=== PATIENT | female | born 1955 | race Caucasian/White ===

== ENCOUNTER 2018-10-04 19:28 | Inpatient (IN) | payer BC, OTHER ==
[~2018-10-04] VITALS: Ht 165.1 cm; Wt 104.8 kg
--- NOTE | ~2018-10-04 | OP ---
[facility] [address] [place] [address] OPERATIVE REPORT Name: BOZENA SHAH Room: [address] IN M.R.#: [id number] Admission: 10/04/18 Attend Phys: Yajaira Christian Discharge: Date of : 55 Report #: [id number] THIS REPORT FOR: //name// CC: Jaylin Nunez DICTATED BY: Tito Ruelas DO DATE OF SERVICE: 10/09/2018 PREOPERATIVE DIAGNOSIS: A split, depressed, comminuted intraarticular right tibial plateau fracture. POSTOPERATIVE DIAGNOSIS: A split, depressed, comminuted intraarticular right tibial plateau fracture. OPERATION PERFORMED: Open reduction and internal fixation with bone grafting of right tibial plateau. SURGEON: Max Espinoza DO INFECTION CONTROL PREVENTIONIST: Tito Ruelas DO SECOND MANAGER MEDICAL DEVICE: Mitchell Espinoza DO ANESTHESIA: General. FINDINGS: Comminuted intra-articular lateral plateau fracture. SPECIMENS: None. ESTIMATED BLOOD LOSS: 50 mL. COMPLICATIONS: None. CONDITION: The patient is stable. DRAINS: None. ANTIBIOTICS: 2 grams Ancef given IV preoperatively. DISPOSITION: Stable to PACU to orthopedic floor. INDICATIONS FOR PROCEDURE: The patient is a 63-year-old female who presented to [facility] on 10/04/2018 after slipping on the ice in her driveway and sustained a fall onto her right knee. She was found to have tibial [facility] [address] [place] [address] OPERATIVE REPORT Name: BOZENA SHAH Room: [address] IN M.R.#: [id number] Admission: 10/04/18 Attend Phys: Yajaira Christian Discharge: Date of : 55 Report #: [id number] plateau fracture on the right leg. Risks, indications, and treatment alternatives were discussed with the patient and we do recommend operative fixation due to the intercondylar widening, as well as comminution of the lateral joint surface with joint depression. Discussed with the patient that she does have significant underlying arthritic changes already of the knee and that despite anatomic fixation and sikh of the joint line due to her underlying arthritic process, she may eventually require a total knee arthroplasty. The patient showed good understanding and elected to proceed with operative fixation. The risks were discussed with her in detail, which included but were not limited to neurovascular damage, infection, fracture, need for repeat surgery, failure of the implants, allergies developed in the implants, deep vein thrombosis, pulmonary emboli, myocardial infarction, rhabdomyolysis, malunion, nonunion, decreased range of motion. The patient showed good understanding. OPERATION IN DETAIL: The patient was taken to the operating room and placed on the operating table in the supine position. A well-padded tourniquet was placed on the right proximal thigh. Tourniquet was inflated to 300 mmHg throughout the procedure for total of 80 minutes. General anesthesia was induced. Right lower extremity was then sterilely prepped and draped in the usual fashion. A timeout was performed and everyone in room was in agreement that this was a correct patient, procedure to be performed, operative side, and she has been given preoperative antibiotics. An anterolateral based incision was marked out on the right leg. Esmarch was used to exsanguinate the extremity and tourniquet was inflated. The scalpel was used to sharply dissect through the skin and subcutaneous tissue down to the level of the fascia of the anterior compartment of the leg. Fascia was then sharply incised and dissected free from the anterior compartment and off Gerdy's tubercle. Dissection was carried proximally to the level of the joint. A Han elevator was then used to free the proximal tibia from the anterior compartment musculature. A submeniscal arthrotomy was then used and a Harwood elevator was used to palpate significant joint line depression of the lateral compartment. A cortical window was then created by first predrilling circumferentially in a 1 cm circular pattern in the lateral metaphyseal region. An osteotome was then used to complete the cortical window. A bone tamp was then used to elevate the lateral joint surface. This was confirmed to be improved on fluoroscopy, as well as through our submeniscal arthrotomy by using a Harwood elevator to palpate the improvement in the joint line. The metaphyseal defect was then filled with allograft bone chips. This was tamped into position and was found to give good support to the lateral joint surface. Next, the appropriately sized Synthes 3.5 mm variable angle locking proximal tibial plate was selected. This was a 4-hole, 87 mm right-sided plate. Fluoroscopy was used to confirm appropriate positioning on the lateral cortex. A nonlocking screw was first placed distally to buttress the lateral fragments. Next, a nonlocking screw was then placed proximally to act as a lag screw to improve the intercondylar widening. Next, remaining proximal row was filled with 3.5 mm variable angle screws. These were all 70 mm in length. Next, a [address] [address] OPERATIVE REPORT Name: BOZENA SHAH Room: [address] IN .R.#: [id number] Admission: 10/04/18 Attend Phys: Yajiara Christian Discharge: Date of : 55 Report #: [id number] kickstand style screw was placed in the metaphyseal region followed by the final distal cortex screw. Once all screws were appropriately positioned, final images were taken and confirmed improved alignment of the fracture and appropriate positioning of the plate and screws. Next, the wound was thoroughly irrigated and analgesic solution was injected intraarticularly, as well as into the surrounding soft tissues. The submeniscal arthrotomy was then closed, as well as the fascial layer with #1 Vicryl in a mdypym-jy-warld fashion. Next, the subcutaneous layer was closed with simple inverted 2-0 Monocryl suture. The skin was then closed with a running Stratafix suture and Dermabond was used to approximate skin. A Mepilex dressing was then applied followed by an Kuldip bandage. The patient was then placed back in 3D hinged knee brace. The patient was awakened from general anesthetic and found to tolerate the procedure well. No complications. The patient was transferred to the PACU in stable condition. By: [id number] Espinoza DO /sanket
[2018-10-04 19:34] VITALS: BP 153/66
[2018-10-04] MEDS ORDERED: ASPIR 8181 M1 PO (21:28)
[2018-10-04] MEDS ORDERED: BUTRANS1 EAC1 TRANSDERM (21:29)
[2018-10-04] MEDS ORDERED: CARTIA XT240 M1 PO (21:30)
[2018-10-04] MEDS ORDERED: COREG6.25 MG PO (21:30)
[2018-10-04] MEDS ORDERED: CYMBALTA60 MG PO (21:31)
[2018-10-04] MEDS ORDERED: FISH OIL 1,001000 M2 PO (21:31)
[2018-10-04] MEDS ORDERED: NEURONTIN 300300 M1 PO ×2 (21:32)
[2018-10-04] MEDS ORDERED: GLUCAGON HCL1 MG INJECTION (21:33)
[2018-10-04] MEDS ORDERED: HYDROCHLOROTHIA25 M2 PO (21:34)
[2018-10-04] MEDS ORDERED: BASAGLAR K100 UNIT/1 SUBQ (21:35)
[2018-10-04] MEDS ORDERED: LISINOPRIL2.5 MG PO (21:36)
[2018-10-04] MEDS ORDERED: LIPITOR 20 MG T20 M1 PO (21:36)
[2018-10-04] MEDS ORDERED: LIORESAL 10 MG10 MG PO (21:37)
[2018-10-04] MEDS ORDERED: METFORMIN HCL500 MG PO (21:37)
[2018-10-04] MEDS ORDERED: NOVOLOG100 UNIT/1 SUBQ (21:38)
[2018-10-04] MEDS ORDERED: OMEPRAZOLE40 MG PO (21:38)
[2018-10-04] MEDS ORDERED: IRON18 M1 PO (21:40)
[2018-10-04] MEDS ORDERED: REQUIP0.5 MG PO (21:41)
[2018-10-04] MEDS ORDERED: PERCOCET 7.5-31 EACH PO (21:41)
[2018-10-04] MEDS ORDERED: POTASSIUM20 PO (21:41)
[2018-10-04] MEDS ORDERED: SENOKOT8.6 MG PO (21:42)
[2018-10-04] MEDS ORDERED: TRAZODONE 150150 M1 PO (21:43)
[2018-10-04] MEDS ORDERED: TIMOLOL MA0.25 %/52 INTRAOCULR (21:43)
[2018-10-04] MEDS ORDERED: TRICOR145 MG PO (21:44)
[2018-10-04] MEDS ORDERED: VITAMIN D1000 UNI1 PO (21:44)
[2018-10-04] MEDS ORDERED: TRAVATAN (21:45)
[2018-10-04 22:19] LABS: ABSOLUTE EOSINOPHILS 0.1 thou/uL (0.0-0.7); ABSOLUTE LYMPHOCYTES 1.3 thou/uL (0.8-5.3); ABSOLUTE MONOCYTES 0.3 thou/uL (0.0-1.2); ABSOLUTE NEUTROPHILS 2.3 thou/uL (1.6-8.1); EOSINOPHILS 3.4 %; HEMATOCRIT 36.2 % (37.0-47.0); HEMOGLOBIN 12.2 gm/dL (12.0-15.0); LYMPHOCYTES 30.9 %; MCH 30.2 pg (26.0-34.0); MCHC 33.7 g/dL (28.0-37.0); MCV 89.6 fL (80.0-100.0); MONOCYTES 8.2 %; MPV 7.7 fl. (7.2-11.1); NUCLEATED RBCS 0 /100WBC; PLATELET COUNT* 186 thou/uL (150-400); POLYS 56.5 %; RBC 4.05 mil/uL (4.20-5.00); RDW-CV 13.8 % (10.5-14.5); WBC 4.1 thou/uL (4.0-11.0)
[2018-10-04 22:26] LABS: CALCIUM 9.5 mg/dL (8.5-10.1); POTASSIUM 3.9 mmol/L (3.5-5.1)
[2018-10-04 23:27] VITALS: BP 130/59
[2018-10-04 23:36] VITALS: BP 145/60
[2018-10-05] MEDS ORDERED: NEURONTIN600 MG PO ×2 (00:44→00:46)
--- NOTE | 2018-10-05 06:20 | NUR ---
Admission last evening at 2330. She has a rt.plateau tibial fracture. Splint with acewrap placed on patient in ED. She is nonweight bearing to RLE. She rates her pain from 8-10. She does pivot well to bedside commode and has had good urine output. She's had pain meds x 2. Ortho consult called to Dr Felton and he ordered her to have nothing by mouth. She's been NPO since 0030. She did take requip for restless legs with a sip of H2O and baclofen also with a sip of H2O. She has been having muscle spasms in her left leg. RLE is elevated on a pillow. She is in pain but has rested a bit this shift.
[2018-10-05 09:32] VITALS: BP 127/64
[2018-10-05 10:55] LABS: URINE BILIRUBIN NEGATIVE (Negative); URINE BLOOD NEGATIVE (Negative); URINE CLARITY CLEAR; URINE COLOR YELLOW; URINE GLUCOSE-RANDOM 2+ (Negative); URINE KETONES NEGATIVE (Negative); URINE LEUKOCYTES-REFLEX NEGATIVE (Negative); URINE NITRITE-REFLEX NEGATIVE (Negative); URINE PROTEIN NEGATIVE (Negative)
--- NOTE | 2018-10-05 12:20 | NUR ---
PT.SITTING ON SIDE OF BED,EATING LUNCH. SHE WAS ALERT AND ORIENTED. SHE LIVES WITH HER IN A RAISED RANCH HOME. HAS A FULL FLIGHT OF STAIRS FROM GARAGE TO MAIN LEVEL. NORMALLY IS INDEPENDENT AT HOME. NO USE OF DME OR HX OF HH. SHE HAS A WALKER AT HOME 'SOMEWHERE'. SHE DOES NOT THINK IT HAS FRONT WHEELS. CM WILL SEE AGAIN AFTER SURGERY AND P.T.INITIATED TO DETERMINE DISCHARGE PLANS.
[2018-10-05 12:50] VITALS: BP 152/78
--- NOTE | 2018-10-05 15:02 | EKG ---
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: : 1955 Requested By: Yasir Campoverde Order Number: [id number] Reading MD: Jono Malave Measurements Intervals [place] Rate: 84 P: 43 IA: 132 QRS: -16 QRSD: 94 T: 28 QT: 380 QTc: 450 Interpretive Statements Sinus rhythm Abnormal R-wave progression, late transition Inferior infarct, old Baseline wander in lead(s) V1 No previous ECG available for comparison Electronically Signed On 10-05-2018 15:02:45 [employer]DR[employer] ATTENDANT by Jono Malave [email or web address] <ELECTRONICALLY SIGNED> By: Jono Malave MD, [facility] 10/05/18 1502 1246 1246 Jono Malave MD, [facility] /EPI
[2018-10-05 16:00] VITALS: BP 118/48
--- NOTE | 2018-10-05 17:22 | NUR ---
pt remained alert and oriented this shift. pt c/o pain, meds given as ordered. pt is carb control currently and will be npo after midnight. ortho will see patient and will go over plan of care after ct and x-ray results. pt id nwb to rt leg and has splint currently to leg. fall risk precautions in place. hourly rounding completed. will continue to monitor.
[2018-10-05 20:05] VITALS: BP 148/67
--- NOTE | 2018-10-06 04:50 | NUR ---
PT REMAINED A&Ox4. VITALS STABLE. PAIN CONTROLLED WITH OXY AND MORPHINE. NPO AFTER MIDNIGHT. GOT UP TO CAMMODE WITH ASSIST OF 1, GAITBELT AND WALKER USED. IV IN L AC PATENT, SL. GAVE 40 UNITS OF LANTUS AT BEDTIME PER DR ORDERS SINCE NPO. SIMRAN WRAP AND IMMOBILIZER IN PLACE. L SCD ON. HOURLY ROUNDING COMPLETE. FALL PRECAUTIONS IN PLACE. CALL LIGHT WITHIN REACH. WILL CONTINUE TO MONITOR.
--- NOTE | 2018-10-06 05:47 | NUR ---
Alert and oriented x 4. She's up to the bedside commode with assist x 1 and walker,she remains NWB to RLE. Odjose eduardo recieved per Dr Campoverde regarding insulin dose, 1/2 lantus dose was given. She has been NPO since midnight. I agree with Jason CORONADOdirector medical science and charting.
[2018-10-06] MEDS ORDERED: OXYCODONE HCL 55 MG PO (08:58)
[2018-10-06] MEDS ORDERED: ASA5UEC PO (08:58)
[2018-10-06 15:56] VITALS: BP 116/56
--- NOTE | 2018-10-06 17:08 | NUR ---
ALERT AND ORIENTED X4. UP WITH ASSIST X1 WITH WALKER AND GAIT BELT. IV IS PATENT AND SALINE LOCKED. PAIN BEING MANAGED WITH PO PAIN MEDICATION. DENIES NAUSEA. ATTENDED THERAPY THIS AM, PHYSICAL THERAPIST REQUESTS THAT PATIENT BE SEEN AGAIN BEFORE DISCHARGING DUE TO ISSUES WITH STAIRS. 3D HINDGE BRACE PLACED THIS AM. VSS ON ROOM AIR. HOURLY ROUNDS HAVE BEEN MAINTAINED THROUGHOUT SHIFT. CALL LIGHT IS WITHIN REACH. NURSING WILL CONTINUE TO MONITOR.
--- NOTE | 2018-10-06 17:41 | NUR ---
ARIANNA RECOMMENDING SNF AT DISCHARGE. PT.HAS STAIRS TO ENTER HOUSE. HAS NOT BEEN ABLE TO NEGOTIATE STAIRS IN THERAPY. DISCUSSED WITH PT. SHE WANTED TO KNOW HOW MUCH IT COST. TOLD HER WHEN SNF WAS GETTING AUTH,THEY WOULD CHECK HER BENEFITS. GAVE HER LIST OF SNFS THAT CONTRACT WITH HER INSURACE. SHE SAID SHE WOULD DISCUSS WITH HER AND MAYBE SHE WOULD DO BETTER ON STAIRS TOMORROW. SHE SAID TALKED LIKE SHE MAY HAVE SURGERY IN A COUPLE OF WEEKS AFTER SWELLING GOES DOWN.
[2018-10-06 19:15] VITALS: BP 132/63
--- NOTE | 2018-10-06 22:14 | NUR ---
RECIEVED REPORT AND ASSUMED CARE OF PT AT 1915. PT RESTING IN BED WITH CALL LIGHT IN REACH, PT USING APPROPRIATELY. PT DENIED PAIN OR DISCOMFORT AT THAT TIME. HS MEDS GIVEN PER EMAR AT 2099. PT DENIED PAIN AT THAT TIME. CALL LIGHT IN REACH, VITAL SIGNS WITHIN NORMAL LIMITS
[2018-10-07 00:20] VITALS: BP 136/65
[2018-10-07 06:00] VITALS: BP 148/77
--- NOTE | 2018-10-07 06:48 | NUR ---
PT PROGRESSING TOWARD GOALS. PT UP WITH MINIAL ASSISTANCE. PT ABLE TO TRANSFER, STAND AND USE WALKER WITH STANDBY ASSIST. PT'S PAIN CONTROLLED WITH ORAL MEDS. VITAL SIGNS WITHIN NORMAL LIMITS. NO ACUTE CHANGES, WILL CONTINUE TO MONITOR.
--- NOTE | 2018-10-07 12:46 | NUR ---
Following for d/c planning needs. Reviewed chart and spoke with nurse, pt, PT and spouse. Pt is unable to scoot up the stairs on her backside in therapy and is not able to hop up the stairs. According to spouse, there are 3-5 steps into the house. Unable to obtain insurance authorization for skilled on a Tuesday. Pt would prefer going home on d/c from hospital. Will remain available to assist as needed.
[2018-10-07 15:39] VITALS: BP 109/54
[2018-10-07 20:00] VITALS: BP 115/54
[2018-10-08 04:15] LABS: HEMATOCRIT 35.5 % (37.0-47.0); HEMOGLOBIN 12.1 gm/dL (12.0-15.0); MCH 30.5 pg (26.0-34.0); MCV 89.7 fL (80.0-100.0); MPV 8.5 fl. (7.2-11.1); RBC 3.96 mil/uL (4.20-5.00); RDW-CV 13.6 % (10.5-14.5); WBC 4.8 thou/uL (4.0-11.0)
[2018-10-08 04:54] LABS: CALCIUM 9.5 mg/dL (8.5-10.1); CREATININE 1.2 mg/dL (0.6-1.3); MAGNESIUM 2.1 mg/dL (1.8-2.4); POTASSIUM 4.7 mmol/L (3.5-5.1)
--- NOTE | 2018-10-08 05:13 | NUR ---
ASSUMED CARE OF PT AT 1900 PT ALERT AND ORIENTED X 4 VS AND ASSESSMENT STABLE. PT HAD PAIN MEDS ONCE FOR RLE PAIN THEN SLEPT THROUGH THE NIGHT. WILL CONTINUE PLAN OF CARE.
[2018-10-08 08:00] VITALS: BP 142/67
[2018-10-08 16:13] VITALS: BP 124/55
--- NOTE | 2018-10-08 17:51 | NUR ---
PT RESTING IN BED THROUGHOUT SHIFT. IMMOBLIZER TO RIGHT LEG REMAINS IN PLACE. PT CALLS APPROPRIATELY FOR ASSIST. PAIN WELL CONTROLLED WITH PO MEDS. PARTICIPATED WELL IN THERAPY. PLAN TO DC HOME TOMORROW
[2018-10-08 19:40] VITALS: BP 97/48
--- NOTE | 2018-10-09 05:51 | NUR ---
VITALS WNL. SEE MAR. SEE CHARTING. FALL PRECAUTIONS IN PLACE. HOURLY ROUNDING FOR SAFETY.
[2018-10-09 13:35] VITALS: BP 126/62
[2018-10-09 20:00] VITALS: BP 168/74
[2018-10-10] VITALS: BP 153/69
[2018-10-10 04:00] VITALS: BP 149/71
--- NOTE | 2018-10-10 04:50 | NUR ---
PATIENT RESTED IN BED, NO ACUTE CHANGES. PATIENT IS NOT SHOWING SIGNS OF DISTRESS. FALL PRECAUTIONS IN PLACE, CALL LIGHT WITH IN REACH, HOURLY ROUNDING OBSERVED, BED ALARM ON.
--- NOTE | 2018-10-10 12:13 | OP ---
[facility] [address] [place] [address] OPERATIVE REPORT Name: BOZENA SHAH WINSTON Room: [address] IN M.R.#: [id number] Admission: 10/04/18 Attend Phys: Yajaira Christian Discharge: Date of : 55 Report #: [id number] THIS REPORT FOR: //name// CC: Jaylin Nunez DICTATED BY: Tito Ruelas DO DATE OF SERVICE: 10/09/2018 ADDENDUM PROCEDURE PERFORMED: Open reduction and internal fixation of right lateral tibial plateau fracture with bone grafting. IMPLANTS: Synthes 3.5 mm locking proximal tibial plate, 4-hole 3.5 mm conical screw 75 mm, 3.5 mm variable angle screws, 70 mm x 3; 3.5 mm cortex screw 38 mm, 3.5 mm variable angle screw 58 mm, 3.5 mm cortex screw 34 mm and cancellous bone chips 55 mL. <ELECTRONICALLY SIGNED> By: Mike Toribio DO 10/10/18 1213 1742 Flory Espinoza DO /sanket
[2018-10-10 16:47] VITALS: BP 126/65
--- NOTE | 2018-10-10 16:52 | NUR ---
ARIANNA RECOMMENDING SNF FOR PT. DISCUSSED WITH PT. SHE SAID EVEN IF THEY DROVE CAR TO FRONT DOOR. SHE WOULD HAVE 5 STEPS. SHE COULD STAY IN BASEMENT THAT IS FINISHED BUT COUCH IS TOO LOW AND BED THAT IS DOWN THERE IS TOO HIGH. DISCUSSED RENTING A HOSPITAL BED. SHE SAID SHE DIDN'T WANT TO BE DOWN THERE BY HERSELF. PER LISA Godfrey,SOLDERING MACHINE OPERATOR AUTOMATIC AT [facility], PT.DOES NOT HAVE ANY REAL SKILLED BENEFITS. SHE CAN FLEX HER BENEFITS AND CM CAN MAKE A SKILLED BENEFIT FOR HER. PT.ASKING HOW MUCH IT WOULD COST, ETC. LISA HAD ME LEAVE A MESSAGE FOR MATTIE CRANDALL/[facility] CM THAT WORKS WITH PT.'S PARTICULAR PLAN. [phone]) HAVE NOT HEARD BACK FROM HER AT THIS TIME. TOLD PT.I WOULD HAVE INFO FOR HER IN AM.
--- NOTE | 2018-10-10 18:09 | NUR ---
ALERT AND ORIENTED X4. UP WITH ASSIST X1 WITH WALKER AND GAIT BELT. IV IS PATENT AND SALINE LOCKED. PAIN BEING MANAGED WITH PO PAIN MEDICATION. DENIES NAUSEA. TOLERATING DIET. 3D HINDGE BRACE IN PLACE. SIMRAN WRAP IS C/D/I. NWB STATUS IN PLACE. VSS ON ROOM AIR. HOURLY ROUNDS HAVE BEEN MAINTAINED THROUGHOUT SHIFT. CALL LIGHT IS WITHIN REACH. NURSING WILL CONTINUE TO MONITOR.
[2018-10-10 22:27] VITALS: BP 120/54
[2018-10-11 00:18] VITALS: BP 141/55
[2018-10-11 04:27] VITALS: BP 142/67
[2018-10-11 04:43] LABS: HEMATOCRIT 37.1 % (37.0-47.0); HEMOGLOBIN 12.6 gm/dL (12.0-15.0); MCH 30.1 pg (26.0-34.0); MCHC 33.9 g/dL (28.0-37.0); MCV 88.9 fL (80.0-100.0); MPV 7.9 fl. (7.2-11.1); RBC 4.17 mil/uL (4.20-5.00); RDW-CV 13.4 % (10.5-14.5); WBC 6.3 thou/uL (4.0-11.0)
--- NOTE | 2018-10-11 04:54 | NUR ---
ASSUMED CARE OF PT AT 1900PT ALERT AND ORIENTED X4 VS AND ASSESSMET STABLE.PT HAD PAIN MEDS BEFORE BED THEN SLEPT THROUGH THE NIGHT. OFFERED PT ANOTHER DOSE AT 0400 PT DECLINED AND STATED SHE WOULD LET ME KNOW IF SHE NEEDED PAIN MEDS. PT CONTINUES WITH 3D HINGE BRACE POSITIVE CMS CHECKS TO RLE. WILL CONTINUE PLAN OF CARE.
[2018-10-11 04:55] LABS: CALCIUM 9.4 mg/dL (8.5-10.1); POTASSIUM 4.1 mmol/L (3.5-5.1)
[2018-10-11 08:17] VITALS: BP 135/77
--- NOTE | 2018-10-11 13:36 | NUR ---
Nutrition: reassessment. Pt is tolerating diet. Pain is improved. No nutrition interventions needed at this time. Low risk.
--- NOTE | 2018-10-11 17:26 | NUR ---
PT UP IN CHAIR AND BR WITH ASSIST AND WALKER. PARTICIPATES IN ALL THERAPIES. PAIN WELL CONTROLLED WITH PO MEDS. TOLERATING PO WELL. BG WELL CONTROLLED. PLAN TO DC IN AM
--- NOTE | 2018-10-11 17:41 | NUR ---
THERAPY FEELS PT.COULD DISCHARGE HOME WITH HOME HEALTH P.T. SHE WAS ABLE TO DO 4 STAIRS TODAY. WILL DISCUSS IN AM WITH PT.
[2018-10-11 20:00] VITALS: BP 111/61
[2018-10-11 23:52] VITALS: BP 113/56
[2018-10-12 04:30] VITALS: BP 127/60
--- NOTE | 2018-10-12 05:03 | NUR ---
ASSUMED CARE OF PT AT 1900 PT ALERT AND ORIENTED X4 VS AND ASSESSMENT STABLE. POSITIVE CMS CHECKS TO RLE. PT HAD PAIN MEDS ONCE THEN SLEPT THROUGH THE NIGHT. WILL CONTINUE PLAN OF CARE.
[2018-10-12 08:59] VITALS: BP 120/97
--- NOTE | 2018-10-12 16:25 | NUR ---
POWDER COAT PAINTER FAXED PATIENT'S FEP CONSENT FORM TO LISA. LISA RETURNED CALL AND INFORMS THAT THE PATIENTS BENEFITS CHANGE HAS BEEN APPROVED AND NOW HAS AN AUTH NUMBER AND CAN GO TO [facility] WHEN ARRANGED. POWDER COAT PAINTER SPOKE TO THE PATIENT TO DISCUSS DISCHARGE PLANNING FOR THE PATIENT. PATIENT CHOSE [facility]. D/C CLAIMS ATTORNEY SPOKE TO JUAN DIEGO WITH [facility] TO INFORM OF THE SNF REFERRAL AND FAXED THE PATIENT'S FACESHEET, CLINICAL INFO, AND PT/OT NOTES. GRZEGORZ WITH [facility] DID AN ON-SITE VISIT WITH THE PATIENT AND HAS ACCEPTED THE PATIENT FOR [facility]. V REQUEST THAT A LETTER OF PREDICTABILITY BE SIGNED BY THE PHYSICIAN PRIOR TO D/C. FORM ON FRONT OF PATIENT'S CHART. CM WILL REMAIN AVAILABLE TO ASSIST AND FOLLOW NEEDED.
--- NOTE | 2018-10-12 17:57 | NUR ---
ALERT AND ORIENTED X4. UP WITH ASSIST X1 WITH WALKER AND GAIT BELT. IV IS PATENT AND SALINE LOCKED. PAIN BEING MANAGED WITH PO PAIN MEDICATION. DENIES NAUSEA. ATTENDED PHYSICAL AND OCCUPATIONAL THERAPY THIS SHIFT. TOLERATING DIET. NWB STATUS MAINTAINED THROUGHOUT SHIFT. 3D HINDGE BRACE IN PLACE. VSS ON ROOM AIR. HOURLY ROUNDS HAVE BEEN MAINTAINED THROUGHOUT SHIFT. PLAN TO DC SKILLED WHEN ARRANGED. CALL LIGHT IS WITHIN REACH. NURSING WILL CONTINUE TO MONITOR.
[2018-10-12 20:45] VITALS: BP 130/69
--- NOTE | 2018-10-13 07:21 | NUR ---
Alert and oriented x 4. Up with assist X 1, non weight bearing to RLE,with walker to the bedside commode. She had pain meds at bedtime and this am. Acewrap dressing to Rt leg with 3D hinge brace clean dry and intact. She has slept well.
[2018-10-13 08:10] VITALS: BP 112/63
--- NOTE | 2018-10-13 11:17 | NUR ---
BRICK STACKER SPOKE TO THE PATIENT TO DISCUSS DISCHARGE PLANNING NEEDS AND HER D/C TODAY TO SNF AT [facility]. PATIENT IN AGREEMENT AND HAS NO QUESTIONS OR CONCERNS. JUAN DIEGO WITH [facility] INFORMS THAT TRANSPOTATION IS ARRANGED FOR 1430. D/C PLANNNER FAXED PATIENT D/C ORDERS AND INFORMED RN IN-CHARGE OF PATIENT OF PATIENT'S TIME OF TRANSFER AND WHERE TO CALL REPORT. RN IN AGREEMENT. CM WILL REMAIN AVAILABLE TO ASSIST AND FOLLOW NEEDED.
[2018-10-13 14:44] VITALS: BP 112/63
--- NOTE | 2018-10-13 16:03 | NUR ---
PATIENT LEFT UNIT WITH TRANSPORTATION BY WHEELCHAIR. IV DC'D. EDUCATED PATIENT ON NEW MED SCRIPTS AND DISCHARGE INSTRUCTIONS. PATIENT VERBALIZED UNDERSTANDING. ALL BELONGINGS LEFT WITH PATIENT.
[2018-10-13 16:05] VITALS: BP 112/63
== END 2018-10-13 16:08 | disposition home or self-care (01) | DRG 493 ==
LOC: M.ERS 19:28 → M.ORTHSURG 22:03 → M.TBA-ER 22:03 → M.ORTHSURG 23:31
PROVIDERS: Emergency Medicine; Family Medicine; Internal Medicine; ADMIT Internal Medicine
DX: S82.141A Displaced bicondylar fracture of right tibia, initial encounter for closed fracture (principal); M80.061A Age-related osteoporosis with current pathological fracture, right lower leg, initial encounter for fracture; F11.20 Opioid dependence, uncomplicated; E11.9 Type 2 diabetes mellitus without complications; I10 Essential (primary) hypertension; E78.00 Pure hypercholesterolemia, unspecified; F32.9 Major depressive disorder, single episode, unspecified; G89.29 Other chronic pain; H40.9 Unspecified glaucoma; K21.9 Gastro-esophageal reflux disease without esophagitis; E66.9 Obesity, unspecified; S40.011A Contusion of right shoulder, initial encounter; E78.5 Hyperlipidemia, unspecified; N18.3 Chronic kidney disease, stage 3 (moderate); Z79.82 Long term (current) use of aspirin; Z90.710 Acquired absence of both cervix and uterus; Z87.891 Personal history of nicotine dependence; Z87.442 Personal history of urinary calculi; Z68.38 Body mass index [BMI] 38.0-38.9, adult; Z79.899 Other long term (current) drug therapy; W01.0XXA Fall on same level from slipping, tripping and stumbling without subsequent striking against object, initial encounter; Y93.89 Activity, other specified; Y92.89 Other specified places as the place of occurrence of the external cause; Y99.8 Other external cause status